=== PATIENT | male | born 1925 | race Caucasian/White ===

== ENCOUNTER → 2016-07-09 | Outpatient (CLI) | payer MEDICARE, MEDICAID ==
[~2016-07-09] MED LIST: ALBUTEROL SULFATE IH; ALBUTEROL0.83 MG/ML INH; ALLEGRA ALLERG180 MG PO; ATARAX 25MG25 MG/TAB PO; ATIVAN2 MG/1 ML IV; ATROVENT I0.2 MG/1 M IH; BACITRACIN TOP O1 TU TOP; CARAFATE1 G1 PO; CARDI-OMEGA1000 MG PO; CLEOCIN HC150 MG/CAP PO; COLACE100 M1 PO; COUGH DROPS1 EACH MM; DEBROX; DETROL LA 4MG4 MG PO; DIGITEK0.125 MG PO; DIGITEK125 MCG PO; DIGOXIN0.125 MG PO; DIPHENHYDRAMINE25 M1 PO; DIPHENHYDRAMINE25 MG PO; DOVONEX TP; EUCERIN1 CRE TOP; FISH OIL1 IU PO; FLEET ENEM1 BOT/133 RC; FLOMAX; FLOMAX 0.40.4 MG/CAP PO; FLOMAX0.4 MG PO; FUROSEMIDE20 MG PO; GOOD NEIGHBOR180 MG PO; GOOD SENSE ASPI81 M1 PO; HYDROXYZINE HCL25 M1 PO; HYDROXYZINE PAM25 MG PO; IMDUR30 MG PO; INVANZ1 GM IV; IPRATROPIUM BROM3 M1 IH; IPRATROPIUM BROM3 M1 INH; IRON325 M1 PO; ISOSORBIDE MONO30 MG PO; K-DUR 1010 MEQ PO; LANOXIN125 MCG PO; LASIX20 MG PO; LASIX40 M1 PO; LASIX40 MG PO; LEVAQUIN 5500 MG/TA1 PO; LEVOTHYROXIN0.137 MG PO; LORAZEPAM INT2 MG/ML PO; MEDI-FIRST ASP325 MG PO; MILK OF MA400 MG/51 PO; MORPHINE S100 MG/5 M SL; MUCINEX 60600 MG/TA1 PO; MUCINEX1200 MG PO; NIZORAL SHAMPO120 M1 TOP; NIZORAL2% TP; NIZORAL21 PO; NORCO 325 MG-51 TA1 PO; NYSTATIN 1 ML1 ML TOP; OMEPRAZOLE D/R20 MG PO; OMEPRAZOLE20 M1 PO; PEPCID 20MG TAB20 MG PO; POTASSIUM CHLO10 ME5 PO; POTASSIUM CHLO10 ME7 PO; PREDNISONE10 M1 PO; PYRIDIUM200 M1 PO; Patient's Own Medication PO; RANITIDINE HCL150 M1 PO; RANITIDINE150 MG PO; REGLAN10 M1 PO; RT ALBUTER2.5 MG/0.5 IH; SYNTHROID0.112 MG PO; SYNTHROID0.125 MG/T PO; TERBINAFINE HCL TOP; TESSALON P100 MG/CAP PO; TESSALON PERLE200 MG PO; TRIAMCINOLONE0.11 TOP; TYLENOL 325MG325 MG PO; TYLENOL/COD ELIX1 M2 PO; VESICARE10 MG PO; XANAX0.5 MG PO; ZOFRAN8 MG PO
== END ==
LOC: LAB 13:22
DX: R05 Cough (principal); R13.10 Dysphagia, unspecified

== ENCOUNTER 2016-09-03 17:50 | Emergency (ER) | payer MEDICARE, MEDICAID ==
[~2016-09-03 17:50] MED LIST changes: -ATIVAN2 MG/1 ML IV; -COLACE100 M1 PO; -DIGITEK125 MCG PO; -GOOD NEIGHBOR180 MG PO; -LORAZEPAM INT2 MG/ML PO; -MORPHINE S100 MG/5 M SL; -MUCINEX1200 MG PO; -PEPCID 20MG TAB20 MG PO
[2016-09-03] MEDS ORDERED: GOOD NEIGHBOR180 MG PO (18:02)
[2016-09-03] MEDS ORDERED: COLACE100 M1 PO (18:03)
[2016-09-03 21:33] VITALS: BP 125/73
== END 2016-09-03 21:33 ==
LOC: ED 17:50
DX: J69.0 Pneumonitis due to inhalation of food and vomit (principal); I50.9 Heart failure, unspecified
CPT/HCPCS: J1940; J3490

== ENCOUNTER → 2016-09-05 | Outpatient (CLI) | payer MEDICARE, MEDICAID ==
[2016-09-03 21:33] VITALS: BP 125/73
[~2016-09-05] MED LIST changes: +ATIVAN2 MG/1 ML IV; +COLACE100 M1 PO; +DIGITEK125 MCG PO; +GOOD NEIGHBOR180 MG PO; +LORAZEPAM INT2 MG/ML PO; +MORPHINE S100 MG/5 M SL; +MUCINEX1200 MG PO; +PEPCID 20MG TAB20 MG PO
== END ==
LOC: LAB 06:35
DX: J69.0 Pneumonitis due to inhalation of food and vomit (principal)

== ENCOUNTER → 2016-09-07 | Outpatient (CLI) | payer MEDICARE, MEDICAID ==
[2016-09-03 21:33] VITALS: BP 125/73
== END ==
LOC: LAB 06:55
DX: I11.0 Hypertensive heart disease with heart failure (principal); R79.89 Other specified abnormal findings of blood chemistry

== ENCOUNTER → 2016-09-07 | Outpatient (CLI) | payer MEDICARE, MEDICAID ==
[2016-09-03 21:33] VITALS: BP 125/73
== END ==
LOC: RAD 14:02
DX: J18.9 Pneumonia, unspecified organism (principal)

== ENCOUNTER → 2016-10-22 | Outpatient (CLI) | payer MEDICARE, MEDICAID | LOC: LAB 06:40 | DX: E07.89 Other specified disorders of thyroid (principal) ==

== ENCOUNTER → 2016-10-26 | Outpatient (CLI) | payer MEDICARE, MEDICAID | LOC: LAB 06:15 | DX: Z51.81 Encounter for therapeutic drug level monitoring (principal); Z79.899 Other long term (current) drug therapy; I48.91 Unspecified atrial fibrillation ==

== ENCOUNTER 2016-11-02 11:46 | Emergency (ER) | payer MEDICARE, MEDICAID ==
[~2016-11-02 11:46] MED LIST changes: -ATIVAN2 MG/1 ML IV; -DIGITEK125 MCG PO; -LORAZEPAM INT2 MG/ML PO; -MORPHINE S100 MG/5 M SL; -MUCINEX1200 MG PO; -PEPCID 20MG TAB20 MG PO
[2016-11-02] MEDS ORDERED: MUCINEX1200 MG PO (13:17)
[2016-11-02] MEDS ORDERED: LASIX40 M1 PO (13:17)
[2016-11-02 14:19] VITALS: BP 89/52
== END 2016-11-02 14:10 | disposition other institution (70) ==
LOC: ED 11:46
DX: A41.9 Sepsis, unspecified organism (principal); I95.9 Hypotension, unspecified; J69.0 Pneumonitis due to inhalation of food and vomit; R06.00 Dyspnea, unspecified; I48.91 Unspecified atrial fibrillation; I11.0 Hypertensive heart disease with heart failure; I50.9 Heart failure, unspecified; I25.10 Atherosclerotic heart disease of native coronary artery without angina pectoris; F79 Unspecified intellectual disabilities
CPT/HCPCS: A4344; A4354; J2930; J7030

== ENCOUNTER 2016-11-02 13:32 | Inpatient (IN) | payer MEDICARE, MEDICAID ==
[2016-11-02] VITALS (10 sets, daily range): BP systolic 71–89; BP diastolic 41–53
[~2016-11-02] VITALS: Ht 160 cm; Wt 74.2 kg
[~2016-11-02 13:32] MED LIST changes: +MUCINEX1200 MG PO
[2016-11-03] VITALS (23 sets, daily range): BP systolic 80–125; BP diastolic 37–72
[2016-11-04 03:16] VITALS: BP 122/70
[2016-11-04 06:29] VITALS: BP 126/74
[2016-11-04 11:04] VITALS: BP 94/61
[2016-11-04 15:10] VITALS: BP 84/46
[2016-11-04 18:23] VITALS: BP 84/49
[2016-11-04 23:17] VITALS: BP 62/37
[2016-11-04] MEDS ORDERED: DIGITEK125 MCG PO (23:49)
[2016-11-04] MEDS ORDERED: PEPCID 20MG TAB20 MG PO (23:55)
[2016-11-05 03:06] VITALS: BP 75/41
[2016-11-05 06:28] VITALS: BP 73/36
[2016-11-05] MEDS ORDERED: MORPHINE S100 MG/5 M SL (08:26)
[2016-11-05] MEDS ORDERED: ATIVAN2 MG/1 ML IV ×2 (08:28→10:07)
[2016-11-05 09:47] VITALS: BP 73/36
[2016-11-05] MEDS ORDERED: LORAZEPAM INT2 MG/ML PO (10:36)
== END 2016-11-05 10:40 | disposition hospice, home (50) | DRG 871 ==
LOC: MED/SURG 13:32
PROVIDERS: ADMIT Nurse Practitioner Family
DX: A41.9 Sepsis, unspecified organism (principal); J18.9 Pneumonia, unspecified organism; J44.0 Chronic obstructive pulmonary disease with (acute) lower respiratory infection; Z66 Do not resuscitate; Z51.5 Encounter for palliative care; K21.9 Gastro-esophageal reflux disease without esophagitis; I48.91 Unspecified atrial fibrillation; F79 Unspecified intellectual disabilities
CPT/HCPCS: J1650; J1815; J1940; J2060; J2930; J7030